=== PATIENT | male | born 1955 | race Caucasian/White ===

== ENCOUNTER 2018-03-09 05:38 | Inpatient (IN) | payer OTHER, SELFPAY ==
[2018-02-27 09:16] VITALS: BMI 22.1
[2018-03-09] VITALS (14 sets, daily range): BP systolic 109–169; BP diastolic 68–110; PULSE 56–101; RESP 10–20; TEMP 36.5–37.2; O2SAT 95–100; BMI 21.4
--- NOTE | 2018-03-09 | DI.RAD.S_ITS ---
PROCEDURE: XR CERVICAL SPINE 2V OR 3V INDICATIONS: C5-6, C6-7. C7-T1 ACDF TECHNIQUE: 3 view(s) of the cervical spine were acquired. COMPARISON: None. FINDINGS: Bones: Immediate postoperative examination showing expected anatomic alignment after anterior fusion plate placement and interbody disc prosthesis material from C5-6 through C7-T1, contiguous lead. Soft tissues: No prevertebral soft tissue swelling. IMPRESSION: Normal alignment established after C5-T1 anterior fusion plating and interbody disc prosthesis placement. Dictated by: Chris Singh M.D. on 03/09/2018 at 11:17 Approved by: Chris Singh M.D. on 03/09/2018 at 11:19
[2018-03-09] MEDS: LACTATED RINGERS 1,000 ML 42 ML IV (06:54)
[2018-03-09] MEDS: CEFAZOLIN 2 GM/100 ML FROZ.PIGGY IV (07:58)
--- NOTE | 2018-03-09 08:32 | SUR.OPER ---
Supine on padded OR bed, head on gel donut, arm padded and tucked at side, legs uncrossed, safety belt at thigh, tape over blanket over lower legs .
--- NOTE | 2018-03-09 09:27 | CM.DANOTE ---
Discharge Planning/Care Management DCP: assessment: case received, EMR reviewed. Pt is still in surgery for a planned spinal surgical procedure. Payer: [facility]. Surgeon: Dr. Palm PCP: Saad Gibbons. DCP team will be following post surgery and as therapy proceeds to assist with any d/c needs that may arise. Pt is , works at [employer]. CM Discharge Assessment Start: 03/09/18 09:18 Freq: Status: Active Protocol: Document 03/09/18 09:19 ITV (Rec: 03/09/18 09:27 ITV [id number]) Discharge Planning Assessment Whiteboard Updated in Patient Room with Yes name and ext. # of Promotions Firm Accounts Manager Review Status In Process Next Review Type Continued Stay Review Pre-Anesthesia Assessment Start: 02/27/18 09:16 Freq: Status: Active Protocol: Document 02/27/18 09:16 VLJ (Rec: 02/27/18 09:44 VLJ [id number]) Pre-Anesthesia Assessment Patient Information Reviewed Via Chart Review Lab Results BMP/CMP Primary Care Provider Saad Gibbons Medical Clearance Received Yes Seen Specialist in Last 12 Months Yes Specialist Seen Orthopedist Height 177.8 cm Weight 69.989 kg Body Mass Index (BMI) 22.1 Anesthesia Review Requested No Automatic Steel Tie Adjuster No Smoking Status Current every day smoker Musculoskeletal Symptoms Neck Pain Numbness Tremors Ambulatory Aid None/bed rest/nurse assist Comment Difficulty performing ADLs Marital Status Advance Directives? No: REGISTRATION REQUEST
--- NOTE | 2018-03-09 10:50 | PM.OP.1 ---
Operative Date/Time/Diagnoses Date of procedure: 03/09/18 Time of procedure: 08:17 Pre-op diagnosis: 1. C5-6, C6-7, C7-T1 spinal stenosis 2. C5-6, C6-7, C7-T1 spondylosis with radiculopathy Post-op diagnosis: same Procedure & Clinicians Procedure: 1. C5-6, C6-7, C7-T1 anterior cervical discectomy and fusion 2. C5-6, C6-7, C7-T1 interbody cage placement 3. C5-6, C6-7, C7-T1 anterior instrumentation with plate and screw placement in C5, C6, C7, T1 4. Utilization of microsurgical technique and operating microscope Same procedure as scheduled: Yes Indications: Patient has been having chronic neck pain and worsening cervical radiculopathy. Patient failed multiple conservative management with worsening pain weakness and numbness in her upper extremity. Patient has been having difficulty performing activity of daily living. After discussing risks benefits of treatment options, patient elected proceed with surgery. Surgeon: Ryan Palm [place] Carrier: Clarisse Jiménez Click Yes if Unassisted: No Anesthesia Type: General Operative Notes Closure Type: primary Specimen(s): none sent Implants & Drains: Globus extend plate, PEEK cage Applied: catheter Estimated Blood Loss (mL): 50 Blood products transfused: none Procedure in detail: Patient was seen in the preoperative area. Risks and benefits of the surgery was discussed with the patient. Operative consent was obtained and placed in the chart. Patient was then taken to the operative room. Prophylactic antibiotic was given less than 0.5 hr prior to skin incision. General anesthesia was administered. Patient was placed into a supine position on her radiolucent table. Bilateral shoulders were taped down to allow proper C-arm imaging. Anterior cervical area was prepped and draped in a sterile fashion. Time-out was performed at this time. Using lateral C-arm imaging, the level between C5 and T1 was identified and marked on patient's neck. A oblique incision from midline towards medial border of sternocleidomastoid muscle was made. The platysma muscle was incised in line with skin incision. Metzenbaum scissor was used to develop the plane between the medial border of sternocleidomastoid d and the strap muscles medially. The carotid sheath and its contents were identified and protected behind the hand-held retractor during the entire case. The plane between the carotid sheath and strap muscles was developed with Metzenbaum scissors. Dissection was made down to the level of the anterior cervical fascia. Longus colli muscle was incised on the anterior aspect of vertebral bodies bilaterally from C5-6, C6-7, C7-T1. Spinal needle was placed into the CC7-T1 disc space and confirmed with lateral C-arm imaging. Using microsurgical technique and operative microscope, anterior cervical diskectomy was performed at C5-6, C6-7, C7-T1 level. This was done by removing the disc material, removing the anterior and posterior osteophytes posterior longitudinal ligaments along with performing bilateral foraminotomies at all 3 levels. Patient was found to have severe central and foraminal stenosis at all 3 levels. Patient's stenosis was fully decompressed after decompression was completed. After the diskectomy was completed, 3 anterior interbody cages were obtained. The cages were packed with globus via cell bone grafting material. One cage each along with the bone grafting material was then packed into the interbody spaces from C5-6, C6-7, C7-T1 with one cage into each interbody level. Large anterior osteophytes were removed using Leksell rongeur and a power drill. After the cages were placed, the anterior cervical plate was stabilized to the C5-6, C6-7, C7-T1 vertebrae using 2 screws at each each level. Total 8 screws were placed. After confirming placement of the hardware with AP and lateral C-arm imaging, the screws were locked into the plate using the locking mechanism and torque limiting screwdriver. After the hardware was placed and confirmed with AP and lateral C-arm imaging, the wound was irrigated with sterile normal saline. The platysma muscle and the subcutaneous tissue was closed with 2-0 Vicryl. The skin was closed with 4-0Monocryl and Steri-Strips. Patient tolerated the procedure well. Patient was transferred recovery room in stable condition. There were no complications. Complications: none Condition: stable Disposition: PACU Plan for aftercare: Admit to inpatient hospital
--- NOTE | 2018-03-09 10:53 | P.OP_ITS ---
Operative Date/Time/Diagnoses Date of procedure: 03/09/18 Time of procedure: 08:17 Pre-op diagnosis: 1. C5-6, C6-7, C7-T1 spinal stenosis 2. C5-6, C6-7, C7-T1 spondylosis with radiculopathy Post-op diagnosis: same Procedure & Clinicians Procedure: 1. C5-6, C6-7, C7-T1 anterior cervical discectomy and fusion 2. C5-6, C6-7, C7-T1 interbody cage placement 3. C5-6, C6-7, C7-T1 anterior instrumentation with plate and screw placement in C5, C6, C7, T1 4. Utilization of microsurgical technique and operating microscope Same procedure as scheduled: Yes Indications: Patient has been having chronic neck pain and worsening cervical radiculopathy. Patient failed multiple conservative management with worsening pain weakness and numbness in her upper extremity. Patient has been having difficulty performing activity of daily living. After discussing risks benefits of treatment options, patient elected proceed with surgery. Surgeon: Ryan Palm Hook And Eye Attacher: Clarisse Jiménez Click Yes if Unassisted: No Anesthesia Type: General Operative Notes Closure Type: primary Specimen(s): none sent Implants & Drains: Globus extend plate, PEEK cage Applied: catheter Estimated Blood Loss (mL): 50 Blood products transfused: none Procedure in detail: Patient was seen in the preoperative area. Risks and benefits of the surgery was discussed with the patient. Operative consent was obtained and placed in the chart. Patient was then taken to the operative room. Prophylactic antibiotic was given less than 0.5 hr prior to skin incision. General anesthesia was administered. Patient was placed into a supine position on her radiolucent table. Bilateral shoulders were taped down to allow proper C-arm imaging. Anterior cervical area was prepped and draped in a sterile fashion. Time-out was performed at this time. Using lateral C-arm imaging, the level between C5 and T1 was identified and marked on patient's neck. A oblique incision from midline towards medial border of sternocleidomastoid muscle was made. The platysma muscle was incised in line with skin incision. Metzenbaum scissor was used to develop the plane between the medial border of sternocleidomastoid d and the strap muscles medially. The carotid sheath and its contents were identified and protected behind the hand- held retractor during the entire case. The plane between the carotid sheath and strap muscles was developed with Metzenbaum scissors. Dissection was made down to the level of the anterior cervical fascia. Longus colli muscle was incised on the anterior aspect of vertebral bodies bilaterally from C5-6, C6-7, C7-T1. Spinal needle was placed into the CC7-T1 disc space and confirmed with lateral C -arm imaging. Using microsurgical technique and operative microscope, anterior cervical diskectomy was performed at C5-6, C6-7, C7-T1 level. This was done by removing the disc material, removing the anterior and posterior osteophytes posterior longitudinal ligaments along with performing bilateral foraminotomies at all 3 levels. Patient was found to have severe central and foraminal stenosis at all 3 levels. Patient's stenosis was fully decompressed after decompression was completed. After the diskectomy was completed, 3 anterior interbody cages were obtained. The cages were packed with globus via cell bone grafting material. One cage each along with the bone grafting material was then packed into the interbody spaces from C5-6, C6-7, C7-T1 with one cage into each interbody level. Large anterior osteophytes were removed using Leksell rongeur and a power drill. After the cages were placed, the anterior cervical plate was stabilized to the C5-6, C6-7, C7-T1 vertebrae using 2 screws at each each level. Total 8 screws were placed. After confirming placement of the hardware with AP and lateral C- arm imaging, the screws were locked into the plate using the locking mechanism and torque limiting screwdriver. After the hardware was placed and confirmed with AP and lateral C-arm imaging, the wound was irrigated with sterile normal saline. The platysma muscle and the subcutaneous tissue was closed with 2-0 Vicryl. The skin was closed with 4- 0Monocryl and Steri-Strips. Patient tolerated the procedure well. Patient was transferred recovery room in stable condition. There were no complications. Complications: none Condition: stable Disposition: PACU Plan for aftercare: Admit to inpatient hospital
[2018-03-09] MEDS: HYDROMORPHONE 2 MG INJ 1 MG IV (11:10)
[2018-03-09] MEDS: HYDROMORPHONE 2 MG INJ 0.5 MG IV ×2 (11:20→11:30)
[2018-03-09] MEDS: SODIUM CHLORIDE 0.9% 1,000 ML 100 ML IV ×2 (12:49→22:00)
[2018-03-09] MEDS: OXYCODONE IR 5 MG TABLET 10 MG PO ×3 (14:22→21:58)
--- NOTE | 2018-03-09 15:26 | PT.IIE ---
Current Diagnoses Other spondylosis with radiculopathy, cervical region (03/09/18) Spinal stenosis, cervical region (03/09/18) Surgery Performed Operation Date: 03/09/18 07:45 Actual Procedures p C5-6, C6-7, C7-T1 ACDF w/Anterior Instru. - Ryan Palm MD Surgical History (Last Updated 02/27/18 @ 09:38 by Arin Anglin, RN) H/O left inguinal hernia repair (Acute) History of appendectomy (Acute) Medical History (Last Updated 02/27/18 @ 09:39 by Arin Anglin, RN) Acute medial meniscus tear of left knee (Acute) Bilateral neck pain (Acute) Bilateral shoulder pain (Acute) Numbness of right hand (Acute) Osteoarthritis of spine with radiculopathy, cervical region (Acute) Other spondylosis with radiculopathy, cervical region (Acute) Paresthesia (Acute) Sialolithiasis (Acute) Spinal stenosis, cervical region (Acute) Physical Therapy Inpatient Evaluation/Re-Eval M1 PT/OT-IP Prior Functional Status Start: 03/09/18 15:17 Freq: NEEDED Status: Active Protocol: Document 03/09/18 15:18 [facility] (Rec: 03/09/18 15:25 [facility] [id number]) Medical Review Prior Functional Status Medical History Reviewed Yes Diet/Fluid Consistency Regular Communication WNL Mobility and Gait Indep without AD; works at [employer] Activities of Daily Living and IADL's indep Social History Household Members spouse Living Arrangements House Number of Floors (Floors) One Floor Number of Stairs To Enter/Railing? 12 LINDA with rail on 1 side ( partially L then partially R) Home Environment Walk in Shower Home Equipment Hand Held Shower Employment Status Pediatric Social Worker Temporary Additional Social History Comment Pt plans to take off as much time as needed. M2 PT-IP Current Condition Start: 03/09/18 15:17 Freq: NEEDED Status: Active Protocol: Document 03/09/18 15:18 [facility] (Rec: 03/09/18 15:25 [facility] [id number]) Physical Therapy Current Condition Current Condition Evaluation Date 03/09/18 Treatment Diagnosis ACDF Onset Date 03/09/18 Precautions Cervical Spine Precautions Soft Collar for Comfort No Heavy Lifting Log Roll M3 PT-IP Subjective Start: 03/09/18 15:17 Freq: NEEDED Status: Active Protocol: Document 03/09/18 15:18 [facility] (Rec: 03/09/18 15:25 [facility] [id number]) Subjective Physical Therapy Visit Type Type Initial Evaluation Visit Start Time 14:40 Visit Stop Time 15:05 Total Visit Minutes 25 Number of PATENT AGENT Visits 0 Physical Therapy Visit Comments Patient Comments Pt excited to get up Patient Goals Go home tomorrow AM M4 PT-IP Mobility and Gait Start: 03/09/18 15:17 Freq: NEEDED Status: Active Protocol: Document 03/09/18 15:18 [facility] (Rec: 03/09/18 15:25 [facility] [id number]) PT-Bed Mobility Assessment Rolling Type of Rolling Log Rolling Level of Assist Standby Assistance Supine to Sit Supine to Sit Standby Assistance Scooting Scooting to Edge of Bed Standby Assistance PT-Transfer Assessment Sit to and From Stand Sit to and from Stand Standby Assistance Equipment Transfer Assistive Device Gait Belt Orthotic/Prosthetic Devices or Brace: Yes Comments Mobility Comments Pt stood then amb, sat in w/c then ambulated back to room. All sit<>stands SBA Gait Assessment Gait Gait Assistance Required: Standby Assistance Distance (Feet) 150 Assistive Devices Assistive Device Gait Belt Orthotic/Prosthetic Devices or Brace: Yes Factors Limiting Gait Function Factors Limiting Gait Function Decreased Strength Comments Gait Comments Pt reports feeling a little off with legs a little wobbly but no dizziness. Took a rest 1/2 way in w/c then amb back to room. PT-Balance Assessment Sitting Balance and Reactions Static Sitting Balance Ability Normal Dynamic Sitting Balance Ability Normal Standing Balance and Reactions Static Standing Balance Ability Good Dynamic Standing Balance Ability Good M5 PT-IP Objective Assessments Start: 03/09/18 15:17 Freq: NEEDED Status: Active Protocol: Document 03/09/18 15:18 [facility] (Rec: 03/09/18 15:25 [facility] [id number]) Orientation Orientation/Cognition Level of Alertness Alert M6 PT-IP Treatment Start: 03/09/18 15:17 Freq: NEEDED Status: Active Protocol: Document 03/09/18 15:18 [facility] (Rec: 03/09/18 15:25 [facility] [id number]) Physical Therapy Treatment Education Education Provided Precautions M7 PT-IP Assessment and Plan Start: 03/09/18 15:17 Freq: NEEDED Status: Active Protocol: Document 03/09/18 15:18 [facility] (Rec: 03/09/18 15:25 [facility] [id number]) PT Summary Assessment and Plan Potential Rehabilitation Potential Excellent Status of Condition at Evaluation Evolving Summary Impairments Pain ROM Strength Balance Gait Assessment Summary Pt is very motivated to cont to progress and is likely to cont to improve with his mobility and be safe for d/c tomorrow based on mobility if he can do stairs safely. Goals Bed Mobility Goal Independent Transfer Goal Independent Gait Goal Standby Assistance Gait Distance 200 Other Goals up/down 12 stairs with 1 rail SBA Days to Meet Goals 2 Frequency of Treatment Frequency Of Treatment Once a Day Treatment Plan Physical Therapy Treatment Plan Bed Mobility Training Transfer Training Gait Training Therapeutic Exercise Balance Retraining Discharge Planning Other Recommendations and Next Treatment stairs & gait, bed mobility Focus without rail Recommendations To Nursing Amount of Assist Needed Standby Assistance Discharge Recommendations PT Discharge Recommendations Home with Assistance
[2018-03-09] MEDS: CEFAZOLIN 1 GM/50 ML FROZ.PIGGY IV (16:30)
[2018-03-09] MEDS: DOCUSATE 100 MG CAPSULE PO (20:59)
[2018-03-09] MEDS: SENNOSIDES 8.6 MG TABLET 17.2 MG PO (20:59)
--- NOTE | 2018-03-09 22:56 | PC.NURSE ---
Patient active tonight, has ambulated in hallways x 2, gait steady with SBA, needing some assistance with shea catheter & IV pole. VS stable. Neck drsg remains CDI, wearing supportive cervical collar. CMS intact, logrolling and post-op cervical neck fusion precautions reviewed. Reports good pain control after taking 2 oxycodone tonight, rating at 1 on pain scale. Ice pack to back of neck. GERRY patent, with 95 ml thin sero-sang output total for last 8 hours. Shea patent with clear yellow urine. Complained that bed was waking me up every 10 minutes, bed changed for new Francisca bed. Complained about noise of IV pump, earplugs given per his request. He is in good spirits tonight, visiting with his daughter in room. Instructed to call for assistance & not get OOB without staff with him, fall precautions reviewed & his bed alarm is active. He denies further needs or concerns tonight.
[2018-03-10 00:20] VITALS: BP 121/78; PULSE 82; RESP 16; TEMP 36.6; O2SAT 99
[2018-03-10] MEDS: CEFAZOLIN 1 GM/50 ML FROZ.PIGGY IV (00:36)
--- NOTE | 2018-03-10 00:46 | PC.NURSE ---
NOC shift Pt is a/o x3, rates pain 5/10, medicated. Pain with cough/swallow. Educated on DB & c, Spo2 99% RA. CMS+, using light for needs. Holt Patent, request removal in am terra.
--- NOTE | 2018-03-10 00:54 | PC.NURSE ---
Addendum entered by Anuja Dexter R.N. 03/10/18 03:56: 0320-Holt removed per Pt request. Pt has been up ambulating halls with minimal assist. Original Note: NOC shift Pt is A/o x3, reports numbness to R hand, present pre surgically. CMS otherwise intact. SBA ambulating in room to BR. Holt patent. Pt requests removal DORIS in am. Medicated for pain . Dressing to neck cdi. Soft collar in place. BA active.
[2018-03-10] MEDS: OXYCODONE IR 5 MG TABLET 10 MG PO ×5 (01:12→21:40)
[2018-03-10] MEDS: hydrOXYzine pamoate 25 MG CAPSULE PO ×3 (03:35→15:07)
[2018-03-10 03:37] VITALS: BP 124/79; PULSE 61; RESP 16; TEMP 36.5; O2SAT 99
[2018-03-10 07:40] VITALS: BP 122/66; PULSE 53; RESP 24; TEMP 36.6; O2SAT 100
[2018-03-10 08:36] LABS: Hematocrit 37.7 % (41-53); Hemoglobin 12.7 g/dL (13.5-17.5); Mean Corpuscular HGB Conc 33.8 % (30-36); Mean Corpuscular Hemoglobin 32.8 PG (26-34); Mean Corpuscular Volume 97.2 fL (80-100); Platelet Count 166 X10^3/uL (150-400); Red Blood Cell Count 3.88 X10^6/uL (4.5-5.9); Red Cell Distribution Width 12.6 % (11.6-14.8)
[2018-03-10] MEDS: DOCUSATE 100 MG CAPSULE PO ×2 (08:36→21:40)
--- NOTE | 2018-03-10 09:13 | PT.IPTN ---
Current Diagnoses Other spondylosis with radiculopathy, cervical region (03/09/18) Spinal stenosis, cervical region (03/09/18) Arthrodesis status (03/09/18) Surgery Performed Operation Date: 03/09/18 07:45 Actual Procedures p C5-6, C6-7, C7-T1 ACDF w/Anterior Instru. - Rayn Palm MD Physical Therapy Treatment Note M2 PT-IP Current Condition Start: 03/09/18 15:17 Freq: NEEDED Status: Active Protocol: Document 03/09/18 15:18 [facility] (Rec: 03/09/18 15:25 [facility] [id number]) Physical Therapy Current Condition Current Condition Evaluation Date 03/09/18 Treatment Diagnosis ACDF Onset Date 03/09/18 Precautions Cervical Spine Precautions Soft Collar for Comfort No Heavy Lifting Log Roll M3 PT-IP Subjective Start: 03/09/18 15:17 Freq: NEEDED Status: Active Protocol: Document 03/10/18 09:13 AB (Rec: 03/10/18 11:41 AB [id number]) Subjective Physical Therapy Visit Type Type Treatment Note Visit Start Time 09:13 Visit Stop Time 09:23 Total Visit Minutes 10 Number of SALES ASSOCIATE FISHING Visits 0 Therapy Pain Assessment Pain When Pain Assessed At Rest Pain Present Pain Present Pain Reported Location Posterior Neck Intensity 2 Scale Used Numeric (1 - 10) M4 PT-IP Mobility and Gait Start: 03/09/18 15:17 Freq: NEEDED Status: Active Protocol: Document 03/10/18 09:13 AB (Rec: 03/10/18 11:41 AB [id number]) Gait Assessment Gait Gait Assistance Required: Standby Assistance Distance (Feet) 200 Able to Maintain Weight Bearing Status Yes During Gait Assistive Devices Assistive Device None Gait Belt Factors Limiting Gait Function Factors Limiting Gait Function Pain Stair Climbing Assessment Evaluation Level of Assist On Stairs Standby Assistance Devices Stair Climbing Assistive Devices Left Railing Right Railing Technique/Endurance Stair Climbing Direction Ascend and Descend Stair Climbing Technique Step to Step Number of Steps Climbed 3 Query Text: Stair Climbing Set # Repetitions (reps) 3 Comments Stair Climbing Comments pt completed up/down steps initially with bilateral rails SBA and then completed using 1 rail ( R and then L) SBA. M5 PT-IP Objective Assessments Start: 03/09/18 15:17 Freq: NEEDED Status: Active Protocol: Document 03/09/18 15:18 [facility] (Rec: 03/09/18 15:25 [facility] [id number]) Orientation Orientation/Cognition Level of Alertness Alert M6 PT-IP Treatment Start: 03/09/18 15:17 Freq: NEEDED Status: Active Protocol: Document 03/09/18 15:18 [facility] (Rec: 03/09/18 15:25 [facility] [id number]) Physical Therapy Treatment Education Education Provided Precautions M7 PT-IP Assessment and Plan Start: 03/09/18 15:17 Freq: NEEDED Status: Active Protocol: Document 03/10/18 09:13 AB (Rec: 03/10/18 11:41 AB [id number]) PT Summary Assessment and Plan Potential Rehabilitation Potential Good Summary Impairments Pain ROM Strength Gait Progress Towards Goals Progressing Toward Goals Assessment Summary pt doing well with mobility and plans to go home with assist. pt may go home when medically stable. Goals Bed Mobility Goal Independent Transfer Goal Independent Gait Goal Standby Assistance Gait Distance 200 Other Goals up/down 12 stairs with 1 rail SBA Days to Meet Goals 2 Frequency of Treatment Frequency Of Treatment Once a Day Treatment Plan Physical Therapy Treatment Plan Bed Mobility Training Transfer Training Gait Training Therapeutic Exercise Balance Retraining Discharge Planning Other Recommendations and Next Treatment stairs & gait, bed mobility Focus without rail Recommendations To Nursing Amount of Assist Needed Standby Assistance Discharge Recommendations PT Discharge Recommendations Home with Assistance
--- NOTE | 2018-03-10 09:44 | PM.PNPO.1 ---
Subjective Date Patient Seen: 03/10/18 Time Patient Seen: 09:44 Interval history: POD #1 status post C5-T1 Artificial cervical discectomy and fusion with Dr. Palm. Patient's pain is well controlled. He has been up and mobilizing with physical therapy. He has a drain in place that put out 120 mL last night. No complaints of swallowing issues. He is able to eat void without difficulty or assistance. Exam Vital Signs (past 8 hours): - 03/10/18 03:37 03/10/18 07:40 Temperature 97.7 F 97.9 F Pulse Rate 61 53 L Respiratory Rate 16 24 Blood Pressure 124/79 122/66 Pulse Oximetry 99 100 Oxygen Delivery Method Room Air Narrative Exam Narrative: Patient lying in bed in no acute distress. He is alert and oriented x3. Dressing on anterior neck is CDI. Wearing a soft collar. Senior Security Engineer strength is strong and equal. Sensation is noticeably better since prior to surgery, with numbness at right pinky and ring finger. Radial pulses are symmetrical. Objective Labs Result Diagrams: 03/10/18 08:12 Labs: Laboratory Results - last 24 hr 03/10/18 08:12 WBC 8.0 RBC 3.88 L Hgb 12.7 L Hct 37.7 L MCV 97.2 MCH 32.8 MCHC 33.8 RDW 12.6 Plt Count 166 Assessment & Plan Post-op (1) S/P cervical spinal fusion: Current Visit: Yes Status: Acute Postoperative Procedures Operation Date: 03/09/18 07:45 Actual Procedures Side Surgeon p C5-6, C6-7, C7-T1 ACDF w/Anterior Instru. Ryan Palm MD POD #1 status post C5-T1 Artificial cervical discectomy and fusion with Dr. Palm. Continue to mobilize with physical therapy. No excessive bending, lifting, or twisting. Keep drain in place until less than 20 mL. Continue current pain control. Patient will likely discharge once drainage has decreased either today or tomorrow. Quality VTE Deep Vein Thrombosis/Pulmonary Embolism Present on Admission: No
--- NOTE | 2018-03-10 11:05 | OT.IP.EVAL ---
Current Diagnoses Other spondylosis with radiculopathy, cervical region (03/09/18) Spinal stenosis, cervical region (03/09/18) Arthrodesis status (03/09/18) Surgery Performed Operation Date: 03/09/18 07:45 Actual Procedures p C5-6, C6-7, C7-T1 ACDF w/Anterior Instru. - Ryan Palm MD Past Medical History (Last Updated 02/27/18 @ 09:39 by Arin Anglin, RN) Acute medial meniscus tear of left knee (Acute) Bilateral neck pain (Acute) Bilateral shoulder pain (Acute) Numbness of right hand (Acute) Osteoarthritis of spine with radiculopathy, cervical region (Acute) Other spondylosis with radiculopathy, cervical region (Acute) Paresthesia (Acute) Sialolithiasis (Acute) Spinal stenosis, cervical region (Acute) Surgical History (Last Updated 02/27/18 @ 09:38 by Arin Anglin, RN) H/O left inguinal hernia repair (Acute) History of appendectomy (Acute) Occupational Therapy Inpatient Evaluation/Re-Eval M1 PT/OT-IP Prior Functional Status Start: 03/09/18 15:17 Freq: NEEDED Status: Active Protocol: Document 03/09/18 15:18 [facility] (Rec: 03/09/18 15:25 [facility] [id number]) Medical Review Prior Functional Status Medical History Reviewed Yes Diet/Fluid Consistency Regular Communication WNL Mobility and Gait Indep without AD; works at [employer] Activities of Daily Living and IADL's indep Social History Household Members spouse Living Arrangements House Number of Floors (Floors) One Floor Number of Stairs To Enter/Railing? 12 LINDA with rail on 1 side ( partially L then partially R) Home Environment Walk in Shower Home Equipment Hand Held Shower Employment Status Industrial Refrigeration Mechanic Temporary Additional Social History Comment Pt plans to take off as much time as needed. M1 PT/OT-IP Prior Functional Status Start: 03/10/18 10:49 Freq: NEEDED Status: Active Protocol: Document 03/10/18 10:49 [facility] (Rec: 03/10/18 11:05 [facility] [id number]) Medical Review Prior Functional Status Medical History Reviewed Yes Diet/Fluid Consistency Regular Communication WNL Mobility and Gait Indep without AD; works at [employer] Activities of Daily Living and IADL's indep Social History Household Members spouse Living Arrangements House Number of Floors (Floors) One Floor Number of Stairs To Enter/Railing? 12 LINDA with rail on 1 side ( partially L then partially R) Home Environment Walk in Shower Home Equipment Hand Held Shower Employment Status Industrial Refrigeration Mechanic Temporary Additional Social History Comment Pt plans to take off as much time as needed. M2 OT-IP Current Condition Start: 03/10/18 10:49 Freq: Status: Active Protocol: Document 03/10/18 10:49 [facility] (Rec: 03/10/18 11:05 [facility] [id number]) Occupational Therapy Current Condition Current Condition Evaluation Date 03/10/18 Treatment Diagnosis Cervical spinal stenosis Diagnosis Onset Date 03/09/18 Post Operative Precautions Posterior Hip Precautions No Hip Adduction Cervical Spine Precautions Soft Collar for Comfort No Heavy Lifting Log Roll M3 OT- IP Subjective and Pain Start: 03/10/18 10:49 Freq: Status: Active Protocol: Document 03/10/18 10:49 [facility] (Rec: 03/10/18 11:05 [facility] [id number]) OT- Subjective Occupational Therapy Visit Type Type Initial Evaluation Visit Start Time 09:05 Visit Stop Time 09:15 Total Visit Minutes 10 Occupational Therapy Visit Comments Patient/Caregiver Goals Pt wanting to go home today. OT Pain Assessment Pain When Pain Assessed During Mobility Pain Present Pain Present Pain Reported Location Posterior Neck Intensity 6 Scale Used Numeric (1 - 10) M4 OT- IP ADL's Start: 03/10/18 10:49 Freq: Status: Active Protocol: Document 03/10/18 10:49 [facility] (Rec: 03/10/18 11:05 [facility] [id number]) OT DPN-Pldf-Zncdbyc General Evaluation Self-Feeding Ability Independent Comments OT Self-Feeding Comments Educated to take smaller bites and alternate between solids and liquids, in addition suggested pt may want to eat softer food initially. OT ADL-Grooming General Evaluation Grooming Ability Independent OT ADL-Oral Care General Eval Oral Care Ability Independent OT ADL-Dressing General Eval Upper Body Dressing Ability Independent Lower Body Dressing Ability Independent Comments OT Dressing Comments Pt able to independently rani/ doff soft collar. OT ADL-Toileting General Evaluation Toileting Ability Independent M6 OT- IP Functional Cognition Start: 03/10/18 10:49 Freq: Status: Active Protocol: Document 03/10/18 10:49 [facility] (Rec: 03/10/18 11:05 [facility] [id number]) Cognitive Factors Limiting Selfcare Function Cognitive Ability Level of Alertness Alert Attention Span Ability Capable of Focused Attention Capable of Sustained Attention Ability to Follow Commands Able to Follow Multi-Step Commands Memory Description No Deficits Noted Safety Awareness No Deficits Noted Problem Solving Ability No deficits Noted Cognitive Comments Cognitive Assessment Comments Independent for all needs, suggested due to on pain meds to have supervise for money and medication needs. OT- Vision and Hearing OT- Hearing Assessment OT- Hearing Assessment Use of Hearing Aids OT- Vision Assessment Vision Assessment Comments Pt states uses hear aids and contacts but did not bring them in. M7 OT- IP Mobility and Balance Start: 03/10/18 10:49 Freq: Status: Active Protocol: Document 03/10/18 10:49 [facility] (Rec: 03/10/18 11:05 [facility] [id number]) OT- Bed Mobility Assessment Rolling Type of Rolling Roll to Right Level of Assistance Independent Supine to Sit Supine to Sit Assist Independent Sit to Supine Sit to Supine Assist Independent OT-Transfer Assessment Sit to and From Stand Sit to and from Stand Independent Transfers Transfer Ability Independent Technique Transfer Destination Bed Toilet Transfer Technique Stand Step Pivot Devices Transfer Assistive Devices None Comments Mobility Comments Pt independent with bed mobility and walking to and from the bathroom and sink with good safety. OT- Balance Assessment Sitting Balance and Reactions Static Sitting Balance Ability Normal Dynamic Sitting Balance Ability Normal Standing Balance and Reactions Static Standing Balance Ability Normal Dynamic Standing Balance Ability Good M8 OT- IP Objective Assessments Start: 03/10/18 10:49 Freq: Status: Active Protocol: Document 03/10/18 10:49 [facility] (Rec: 03/10/18 11:05 [facility] [id number]) OT Gross Range of Motion Upper Extremity Range of Motion Assessment Within Functional Limits OT Strength Comments Strength Comments RUE 4+/5, LUE 5/5 pt states right arm feels half as strong as left side. M9 OT- IP Assessment and Plan Start: 03/10/18 10:49 Freq: Status: Active Protocol: Document 03/10/18 10:49 [facility] (Rec: 03/10/18 11:05 [facility] [id number]) OT Summary Assessment and Plan Potential Rehabilitation Potential Excellent Analytic Complexity at Evaluation Low Summary OT Impairments Pain Strength Progress Towards Goals Progressing Toward Goals Assessment Summary Pt doing well and has no further need for OT services at this time and to go home when cleared by surgeon. Goals Days to Meet Goals 1 Frequency of Treatment Frequency Of Treatment Once a Day Treatment Plan OT Treatment Plan Discharge Planning Discharge Recommendations OT Discharge Recommendations Home with Assistance
[2018-03-10 13:40] VITALS: BP 143/75; PULSE 60; RESP 20; TEMP 36.8; O2SAT 98
--- NOTE | 2018-03-10 14:10 | CM.DPC ---
DCP: continued:Ortho PA note from today is noted. Have watched pt up mobilizing in halls today. Met with him now as planned. Introduced self and role. Pt confirms that the plan is for him to stay in hospital until the drainage is < 20c. Soft collar and drainage bag are in place. Pt will have supportive assist from his and other family members. P: home when all is in place as per above.
[2018-03-10 16:19] VITALS: BP 129/91; PULSE 58; RESP 18; TEMP 36.6; O2SAT 98
[2018-03-10 20:51] VITALS: BP 111/63; PULSE 70; RESP 21; TEMP 36.6; O2SAT 98
[2018-03-10] MEDS: SENNOSIDES 8.6 MG TABLET 17.2 MG PO (21:40)
[2018-03-11 00:10] VITALS: BP 118/72; PULSE 63; RESP 17; TEMP 36.6; O2SAT 98
[2018-03-11 03:35] VITALS: BP 129/93; PULSE 63; RESP 18; TEMP 36.3; O2SAT 97
[2018-03-11] MEDS: hydrOXYzine pamoate 25 MG CAPSULE PO ×4 (03:36→18:31)
[2018-03-11] MEDS: OXYCODONE IR 5 MG TABLET 10 MG PO ×4 (03:36→18:27)
[2018-03-11 07:55] VITALS: BP 138/82; PULSE 60; RESP 17; TEMP 36.7; O2SAT 99
[2018-03-11] MEDS: DOCUSATE 100 MG CAPSULE PO ×2 (08:24→18:27)
--- NOTE | 2018-03-11 09:39 | PM.PNPO.1 ---
Subjective Date Patient Seen: 03/11/18 Time Patient Seen: 07:49 Interval history: Patient's pain is mild. Denies fever chills. No nausea vomiting. Patient tolerating solid food. Otherwise without complaints. Exam Vital Signs (past 8 hours): - 03/11/18 03:35 03/11/18 07:55 Temperature 97.4 F L 98.1 F Pulse Rate 63 60 Respiratory Rate 18 17 Blood Pressure 129/93 H 138/82 Pulse Oximetry 97 99 Drain output 110 cc over the last 8 hr Oxygen Delivery Method Room Air Oxygen Flow Rate 0 Narrative Exam Narrative: 62-year-old male resting comfortably in bed in no apparent distress. Soft collar is in place. Dressing is clean, dry and intact. Sensation grossly intact to light touch bilateral upper extremities. Motor function is intact bilateral upper extremities. Objective Labs Result Diagrams: 03/10/18 08:12 Assessment & Plan Post-op Postoperative Procedures Operation Date: 03/09/18 07:45 Actual Procedures Side Surgeon p C5-6, C6-7, C7-T1 ACDF w/Anterior Instru. Ryan Palm MD postop day 2, patient progressing as expected. Mobilize with physical therapy. Limit bending, twisting, lifting. Continue drain until less than 20 cc. Quality VTE Deep Vein Thrombosis/Pulmonary Embolism Present on Admission: No
--- NOTE | 2018-03-11 10:15 | PC.NURSE ---
0930 GERRY drain to drainage only, no suction per tamika Orozco.
--- NOTE | 2018-03-11 11:11 | PT.IPTN ---
Current Diagnoses Other spondylosis with radiculopathy, cervical region (03/09/18) Spinal stenosis, cervical region (03/09/18) Arthrodesis status (03/09/18) Surgery Performed Operation Date: 03/09/18 07:45 Actual Procedures p C5-6, C6-7, C7-T1 ACDF w/Anterior Instru. - Ryan Palm MD Physical Therapy Treatment Note M2 PT-IP Current Condition Start: 03/09/18 15:17 Freq: NEEDED Status: Active Protocol: Document 03/09/18 15:18 [facility] (Rec: 03/09/18 15:25 [facility] [email or web address]) Physical Therapy Current Condition Current Condition Evaluation Date 03/09/18 Treatment Diagnosis ACDF Onset Date 03/09/18 Precautions Cervical Spine Precautions Soft Collar for Comfort No Heavy Lifting Log Roll M3 PT-IP Subjective Start: 03/09/18 15:17 Freq: NEEDED Status: Active Protocol: Document 03/11/18 10:50 [facility] (Rec: 03/11/18 11:10 [facility] [email or web address]) Subjective Physical Therapy Visit Type Type Treatment Note Visit Start Time 10:35 Visit Stop Time 10:50 Total Visit Minutes 15 Number of QUALITY ASSURANCE ENGINEER Visits 1 Physical Therapy Visit Comments Patient Comments Pt states he would like a shower. Therapy Pain Assessment Pain When Pain Assessed At Rest Pain Present Pain Present Pain Reported Location Posterior Neck Intensity 2 Scale Used Numeric (1 - 10) M4 PT-IP Mobility and Gait Start: 03/09/18 15:17 Freq: NEEDED Status: Active Protocol: Document 03/11/18 10:50 [facility] (Rec: 03/11/18 11:10 [facility] [email or web address]) Gait Assessment Gait Gait Assistance Required: Standby Assistance Distance (Feet) 500 Able to Maintain Weight Bearing Status Yes During Gait Assistive Devices Assistive Device None Gait Belt Factors Limiting Gait Function Factors Limiting Gait Function Pain Stair Climbing Assessment Evaluation Level of Assist On Stairs Standby Assistance Devices Stair Climbing Assistive Devices Left Railing Right Railing Technique/Endurance Stair Climbing Direction Ascend and Descend Stair Climbing Technique Step to Step Number of Steps Climbed 3 Query Text: Stair Climbing Set # Repetitions (reps) 2 Comments Stair Climbing Comments one rep with right and than on rep with left rail. M5 PT-IP Objective Assessments Start: 03/09/18 15:17 Freq: NEEDED Status: Active Protocol: Document 03/09/18 15:18 [facility] (Rec: 03/09/18 15:25 [facility] [id number]) Orientation Orientation/Cognition Level of Alertness Alert M6 PT-IP Treatment Start: 03/09/18 15:17 Freq: NEEDED Status: Active Protocol: Document 03/09/18 15:18 [facility] (Rec: 03/09/18 15:25 [facility] [id number]) Physical Therapy Treatment Education Education Provided Precautions M7 PT-IP Assessment and Plan Start: 03/09/18 15:17 Freq: NEEDED Status: Active Protocol: Document 03/11/18 10:50 [facility] (Rec: 03/11/18 11:10 [facility] [email or web address]) PT Summary Assessment and Plan Frequency of Treatment Frequency Of Treatment Once a Day Treatment Plan Other Recommendations and Next Treatment stairs & gait, bed mobility Focus without rail Recommendations To Nursing Amount of Assist Needed Standby Assistance Discharge Recommendations PT Discharge Recommendations Home with Assistance
[2018-03-11 12:14] VITALS: BP 92/58; PULSE 61; RESP 16; TEMP 36.6; O2SAT 93
[2018-03-11 15:25] VITALS: BP 101/70; PULSE 58; RESP 20; TEMP 36.7; O2SAT 99
[2018-03-11] MEDS: SENNOSIDES 8.6 MG TABLET 17.2 MG PO (18:28)
[2018-03-11 19:54] VITALS: BP 89/55; PULSE 68; RESP 18; TEMP 36.9; O2SAT 96
--- NOTE | 2018-03-12 | DI.RAD.S_ITS ---
PROCEDURE: XR CHEST 1V INDICATIONS: decrease in BP, diaphoretic TECHNIQUE: One view of the chest was acquired. COMPARISON: [facility], CR, XR CERVICAL SPINE 2V OR 3V, 03/09/2018, 8:29. FINDINGS: Surgical changes and devices: The lowest margin of a recently placed anterior cervical fusion plate can be seen, and along the left lateral border of this area and extending approximately 2 cm below there is what appears to be a surgical drain. This extends to the medial clavicular head axial level.. Lungs and pleura: No pleural effusions or pneumothorax. Lungs are clear on the left but there is what appears to be mild or early pneumonia at the right lung base just behind the dome of the diaphragm. Mediastinum: Mediastinal contours appear normal. Heart size is normal. Bones and chest wall: No suspicious bony lesions. Overlying soft tissues appear unremarkable. IMPRESSION: Postsurgical changes appear recent at the anterior low cervical spine area where a fusion plate has been recently placed. What appears to be a vertically oriented drainage catheter on the left lies adjacent to the visualized inferior border of the fusion plate. Suspect mild or early pneumonia just behind the diaphragm at the right lung base. Dictated by: Chris Singh M.D. on 03/12/2018 at 10:48 Approved by: Chris Singh M.D. on 03/12/2018 at 10:51
[2018-03-12 00:30] VITALS: BP 117/68; PULSE 65; RESP 18; TEMP 36.6; O2SAT 97
[2018-03-12] MEDS: OXYCODONE IR 5 MG TABLET 10 MG PO ×4 (01:01→15:53)
[2018-03-12] MEDS: hydrOXYzine pamoate 25 MG CAPSULE PO ×3 (01:02→12:48)
[2018-03-12 06:55] VITALS: BP 108/76; PULSE 60; RESP 16; TEMP 36.5; O2SAT 98
[2018-03-12 07:50] VITALS: BP 112/58; PULSE 60; RESP 16; TEMP 36.7; O2SAT 98
[2018-03-12] MEDS: DOCUSATE 100 MG CAPSULE PO (09:29)
--- NOTE | 2018-03-12 10:29 | PT.IPTN ---
Current Diagnoses Other spondylosis with radiculopathy, cervical region (03/09/18) Spinal stenosis, cervical region (03/09/18) Arthrodesis status (03/09/18) Surgery Performed Operation Date: 03/09/18 07:45 Actual Procedures p C5-6, C6-7, C7-T1 ACDF w/Anterior Instru. - Ryan Palm MD Physical Therapy Treatment Note M2 PT-IP Current Condition Start: 03/09/18 15:17 Freq: NEEDED Status: Active Protocol: Document 03/09/18 15:18 [facility] (Rec: 03/09/18 15:25 [facility] [email or web address]) Physical Therapy Current Condition Current Condition Evaluation Date 03/09/18 Treatment Diagnosis ACDF Onset Date 03/09/18 Precautions Cervical Spine Precautions Soft Collar for Comfort No Heavy Lifting Log Roll M3 PT-IP Subjective Start: 03/09/18 15:17 Freq: NEEDED Status: Active Protocol: Document 03/12/18 10:28 [facility] (Rec: 03/12/18 10:29 [facility]GD [id number]) Subjective Physical Therapy Visit Type Notes Hold per RN, due to pt having low HR and blood pressure. Other Recommendations and Next Treatment stairs & gait, bed mobility Focus without rail Recommendations To Nursing Amount of Assist Needed Standby Assistance Discharge Recommendations PT Discharge Recommendations Home with Assistance
[2018-03-12 11:13] LABS: Add Manual Diff / Slide Review NO; Basophils Percent Auto 0.6 % (0-2); Eosinophils Percent Auto 0.8 % (2-4); Hematocrit 40.3 % (41-53); Hemoglobin 13.6 g/dL (13.5-17.5); Mean Corpuscular HGB Conc 33.8 % (30-36); Mean Corpuscular Hemoglobin 32.7 PG (26-34); Mean Corpuscular Volume 96.8 fL (80-100); Monocytes Percent Auto 9.1 % (3-14); Neutrophils Absolute Auto 4100 /uL (3000-5900); Neutrophils Percent Auto 61.5 % (50-75); Platelet Count 175 X10^3/uL (150-400); Red Blood Cell Count 4.16 X10^6/uL (4.5-5.9); Red Cell Distribution Width 12.3 % (11.6-14.8); White Blood Cell Count 6.7 X10^3/uL (4.5-11.0)
--- NOTE | 2018-03-12 11:18 | PM.PNPO.1 ---
Subjective Date Patient Seen: 03/12/18 Time Patient Seen: 11:18 Interval history: POD #3 status post C5 through T1 Artificial cervical discectomy and fusion with Dr. Palm. Patient's pain has been well controlled. Patient did have a vasovagal episode this morning with heart rate in 30s, and blood pressure 63/30. Patient has no significant cardiac history. Denies chest pain or shortness of breath. Patient denies any swallowing issues. Exam Vital Signs (past 8 hours): - 03/12/18 06:55 03/12/18 07:50 Temperature 97.7 F 98.0 F Pulse Rate 60 60 Respiratory Rate 16 16 Blood Pressure 108/76 112/58 L Pulse Oximetry 98 98 Oxygen Delivery Method Room Air Oxygen Flow Rate 0 Narrative Exam Narrative: The patient lying in bed in no acute distress. He is alert and oriented x3. Dressing on neck is CDI. Drain in place with 75 cc overnight. [facility] strength strong equal. Pulses are symmetrical. Objective Labs Result Diagrams: 03/12/18 11:02 03/12/18 11:02 Labs: Laboratory Results - last 24 hr 03/12/18 11:02 WBC 6.7 RBC 4.16 L Hgb 13.6 Hct 40.3 L MCV 96.8 MCH 32.7 MCHC 33.8 RDW 12.3 Plt Count 175 Neut % (Auto) 61.5 Lymph % (Auto) 28.0 Powell % (Auto) 9.1 Eos % (Auto) 0.8 L Baso % (Auto) 0.6 Neut # (Auto) 4100 Assessment & Plan Post-op (1) S/P cervical spinal fusion: Current Visit: Yes Status: Acute Postoperative Procedures Operation Date: 03/09/18 07:45 Actual Procedures Side Surgeon p C5-6, C6-7, C7-T1 ACDF w/Anterior Instru. Ryan Palm MD Patient likely had a vasovagal episode while eating breakfast. Ordered EKG which was normal. Waiting on results of chest x-ray, CBC, and CMP. Continue to mobilize with physical therapy. He really needs to take his time ambulating in the ware, and going from sitting to standing position. Increases oral fluids. Will potentially discharge once results are back either today or tomorrow, and we will re-evaluate today. Quality VTE Deep Vein Thrombosis/Pulmonary Embolism Present on Admission: No
[2018-03-12 11:23] LABS: Alanine Aminotransferase 19 IU/L (21-72); Albumin 3.9 g/dL (3.5-5.0); Albumin Globulin Ratio 1.6 (1.0-2.8); Alkaline Phosphatase 41 U/L (38-126); Aspartate Aminotransferase 16 IU/L (17-59); BUN Creatinine Ratio 16.7 (6-22); Bilirubin Total 0.4 mg/dL (0.2-1.3); Blood Urea Nitrogen 15 mg/dL (9-20); Calcium 9.3 mg/dL (8.4-10.2); Carbon Dioxide 32 mmol/L (22-32); Chloride 101 mmol/L (98-107); Estimated Glomerular Filt Rate > 60.0 mL/min (>60); Globulin 2.5 g/dL (1.7-4.1); Glucose 94 mg/dL (80-110); HEMOLYSIS < 15 (0-50); Potassium 3.9 mmol/L (3.4-5.1); Sodium 140 mmol/L (137-145); Total Protein 6.4 g/dL (6.3-8.2)
--- NOTE | 2018-03-12 15:05 | PT.IPTN ---
Current Diagnoses Other spondylosis with radiculopathy, cervical region (03/09/18) Spinal stenosis, cervical region (03/09/18) Arthrodesis status (03/09/18) Surgery Performed Operation Date: 03/09/18 07:45 Actual Procedures p C5-6, C6-7, C7-T1 ACDF w/Anterior Instru. - Ryan Palm MD Physical Therapy Treatment Note M2 PT-IP Current Condition Start: 03/09/18 15:17 Freq: NEEDED Status: Active Protocol: Document 03/09/18 15:18 [facility] (Rec: 03/09/18 15:25 [facility] [email or web address]) Physical Therapy Current Condition Current Condition Evaluation Date 03/09/18 Treatment Diagnosis ACDF Onset Date 03/09/18 Precautions Cervical Spine Precautions Soft Collar for Comfort No Heavy Lifting Log Roll M3 PT-IP Subjective Start: 03/09/18 15:17 Freq: NEEDED Status: Active Protocol: Document 03/12/18 15:05 [facility] (Rec: 03/12/18 16:06 GGD [id number]) Subjective Physical Therapy Visit Type Type Treatment Note Visit Start Time 14:44 Visit Stop Time 15:05 Total Visit Minutes 20 Physical Therapy Visit Comments Patient Comments Pt states that he is feeling better. Therapy Pain Assessment Pain When Pain Assessed At Rest Pain Present Pain Present Pain Reported Location Posterior Neck Intensity 3 Scale Used Numeric (1 - 10) M4 PT-IP Mobility and Gait Start: 03/09/18 15:17 Freq: NEEDED Status: Active Protocol: Document 03/12/18 15:05 [facility] (Rec: 03/12/18 16:06 GGD [id number]) PT-Bed Mobility Assessment Rolling Type of Rolling Log Rolling Level of Assist Standby Assistance Supine to Sit Supine to Sit Standby Assistance Sit to Supine Sit to Supine Standby Assistance Scooting Scooting to Edge of Bed Standby Assistance PT-Transfer Assessment Sit to and From Stand Sit to and from Stand Standby Assistance Equipment Transfer Assistive Device Gait Belt Orthotic/Prosthetic Devices or Brace: Yes Comments Mobility Comments BP supine 128/77, sititng 115/ 74, standing 106/80, after ambulation 117/86. Gait Assessment Gait Gait Assistance Required: Standby Assistance Distance (Feet) 220 Able to Maintain Weight Bearing Status Yes During Gait Assistive Devices Assistive Device None Gait Belt Comments Gait Comments Pt no C/O dizziness with gait. M5 PT-IP Objective Assessments Start: 03/09/18 15:17 Freq: NEEDED Status: Active Protocol: Document 03/09/18 15:18 [facility] (Rec: 03/09/18 15:25 [facility] [email or web address]) Orientation Orientation/Cognition Level of Alertness Alert M6 PT-IP Treatment Start: 03/09/18 15:17 Freq: NEEDED Status: Active Protocol: Document 03/09/18 15:18 [facility] (Rec: 03/09/18 15:25 [facility] [email or web address]) Physical Therapy Treatment Education Education Provided Precautions M7 PT-IP Assessment and Plan Start: 03/09/18 15:17 Freq: NEEDED Status: Active Protocol: Document 03/12/18 15:05 [facility] (Rec: 03/12/18 16:06 GGD [id number]) PT Summary Assessment and Plan Summary Assessment Summary Pt continue to do well. He had no dizziness with mobility. He was safe and stable with gait. He safe for D/C home when medically stable. Frequency of Treatment Frequency Of Treatment Once a Day Recommendations To Nursing Amount of Assist Needed Standby Assistance Discharge Recommendations PT Discharge Recommendations Home with Assistance
--- NOTE | 2018-03-12 15:27 | PC.NURSE ---
Ortho: SI'm doing better now. Pt had an apparent vaso vagal response this am. BP 63/31, p 42. Was in bed and not doing anything. Heart rate has been slow and pt reported this morning before incident that this was his normal. Rate this am was 54-56. No c/p. Ecg, labs, x-ray completed and reviewed by LOKESH/. Pt has had no further episode since and has been up w/PT this afternoon. Second concern is his ability to swallow and his throat feeling tight. Pt has not seen ST yet and this was ordered and they are to come and see pt. Ascencion had been opened to gravity yesterday but by the evening time he was reporting to staff his throat felt like it was closing off so suction was again placed. This information was conveyed to LOKESH Bailey who will make Dr. Palm aware. Ascencion has drained 45mls this shift. Pt also reports his throat feels tight when he is laying down in the bed. Likes to keep his hob elevated and/or sits in the chair or at the side of the bed. Po pain meds have been effective for pain but he was unaware he had to ask for them. He is aware now. Hopefully will feel better tomorrow. Cont w/poc.
[2018-03-12 15:50] VITALS: BP 114/71; PULSE 66; RESP 18; TEMP 36.7; O2SAT 98
--- NOTE | 2018-03-12 16:10 | SLP.IPNOTE ---
METALLIC YARN SLITTING MACHINE OPERATOR present for swallow screen after nursing request. Patient had ACDF surgery on 03/09/18. Since then family and staff have observed patient to cough intermittently with intake. However, he is a fast eater. Chest X-ray taken today revealed suspicion for mild or early pneumonia just behind the diaphragm at the right lung base. Please see dedicated report from Dr Singh for further details. From clinical judgment, METALLIC YARN SLITTING MACHINE OPERATOR strongly recommends modified barium swallow study to evaluate the nature and safety of the patient's swallow function while he is admitted during this stay. If an inpatient MBS cannot be completed, strongly recommend outpatient MBS as soon as possible.
--- NOTE | 2018-03-12 16:17 | PC.NURSE ---
nurse note 1615 VSS. Pt alert and oriented. up independantly in room. in room swallow eval performed and pt stated he'd been having discomfort and chest x-ray today showed possible pneumonia. pt able to swallow pills, applesauce, and water without difficulty. states has been probably eating too fast but denies any difficulties. 's PA at bedside for swallow eval as well. into room to meet with pt and family r/t DC and pulled drain. reviewed pt's drain outputs and pulled drain and applied bandage. Family's questions answered by , including addressing pt's vagal episode today. awaiting DC orders to review with pt.
--- NOTE | 2018-03-12 16:22 | PM.DS.1 ---
History of Present Illness Date Patient Seen: 03/12/18 Time Patient Seen: 16:23 Chief complaint: [id number] Narrative: Patient's pain currently well-controlled. Taking oxycodone 10 mg q.3-4 hours as needed for pain. Patient did have a vasovagal episode this morning with heart rate in 30s, and blood pressure 63/30. Patient has no significant cardiac history. Patient has been up since the vasovagal event earlier this morning. Denies feeling short of breath or having chest pain. No difficulty swallowing. He denies being dizzy or lightheaded. Discharge Providers Date of admission: 03/09/18 05:38 Primary care physician: Saad Gibbons MD Consults: 03/09/18 11:54 Consult to Occupational Therapy Evaluate & Treat Comment: Physician Instructions: Evaluate and treat Consult to Physical Therapy Evaluate & Treat Comment: Physician Instructions: Evaluate and Treat Discharge provider: Juan Francisco Bailey PA-C Discharge Date: 03/12/18 Summary Discharge Diagnosis: Status post 1. C5-6, C6-7, C7-T1 anterior cervical discectomy and fusion 2. C5-6, C6-7, C7-T1 interbody cage placement 3. C5-6, C6-7, C7-T1 anterior instrumentation with plate and screw placement in C5, C6, C7, T1 4. Utilization of microsurgical technique and operating microscope Hospital Course: Patient has been having chronic neck pain and worsening cervical radiculopathy. Patient failed multiple conservative management with worsening pain weakness and numbness in her upper extremity. Patient has been having difficulty performing activity of daily living. After discussing risks benefits of treatment options, patient elected proceed with surgery. Surgeon: Ryan Palm Supervisor [employer]: Clarisse Jiménez Click Yes if Unassisted: No Anesthesia Type: General Estimated blood loss 50 mL Basal vagal event earlier this morning. EKG normal. H&H stable. Patient discharged home in stable condition. Status at Discharge Functional status at discharge: uses cane/walker Overall status at discharge: patient is progressing back to baseline Time Spent with Patient Less than 30 minutes Exam Vital Signs (past 8 hours): - 03/12/18 15:50 Temperature 98.0 F Pulse Rate 66 Respiratory Rate 18 Blood Pressure 114/71 Pulse Oximetry 98 Oxygen Delivery Method Room Air Oxygen Flow Rate 0 Narrative Exam Narrative: 62-year-old male sitting at the edge of bed in no acute distress. Soft collar in place. Dressing clean, dry and intact. Drain discontinued. Objective Labs Result Diagrams: 03/12/18 11:02 03/12/18 11:02 Labs: Laboratory Results - last 24 hr 03/12/18 03/12/18 11:02 11:02 WBC 6.7 RBC 4.16 L Hgb 13.6 Hct 40.3 L MCV 96.8 MCH 32.7 MCHC 33.8 RDW 12.3 Plt Count 175 Neut % (Auto) 61.5 Lymph % (Auto) 28.0 [place] % (Auto) 9.1 Eos % (Auto) 0.8 L Baso % (Auto) 0.6 Neut # (Auto) 4100 Sodium 140 Potassium 3.9 Chloride 101 Carbon Dioxide 32 BUN 15 Creatinine 0.90 Estimated GFR > 60.0 BUN/Creatinine Ratio 16.7 Glucose 94 Calcium 9.3 Total Bilirubin 0.4 AST 16 L ALT 19 L Alkaline Phosphatase 41 Total Protein 6.4 Albumin 3.9 Globulin 2.5 Albumin/Globulin Ratio 1.6 Discharge Plan Discharge Plan Patient Disposition: Home Discharge comment: DC home Discharge Med Rec/Prescriptions Prescriptions: New oxycodone 5 mg Tablet 10 mg PO Q3HR PRN (Reason: Pain, Severe (7-10)) Qty: 40 RF: 0 hydroxyzine pamoate 25 mg Capsule 25 mg PO Q4HR PRN (Reason: Nausea And Vomiting) Qty: 30 RF: 0 Follow up/Referrals: Saad Gibbons MD [Primary Care Provider] - Provider Discharge Instructions Diet: Diet as Tolerated Activity: Limit bending, twisting, lifting Cold/Heat Therapy: ice as needed Other treatments: Soft collar for comfort Skin/Wound/Dressing Care Report to your healthcare provider any signs of infection, such as:: chills, fever, increased pain and unusual drainage Dressing: Keep dressing clean and dry Visit Report/Discharge Packet Instructions: DI for Syncope in Adults (Fainting), DI for Constipation, DI for Anterior Cervical Discectomy and Fusion Visit Report Forms: Stroke Signs & Symptoms Discharge Data Primary Care Provider: Saad Gibbons Attending Provider: Ryan Palm Admit Date/Time: 03/09/18 05:38 Quality VTE Deep Vein Thrombosis/Pulmonary Embolism Present on Admission: No
--- NOTE | 2018-03-12 16:28 | P.DS_ITS ---
History of Present Illness Date Patient Seen: 03/12/18 Time Patient Seen: 16:23 Chief complaint: [id number] Narrative: Patient's pain currently well-controlled. Taking oxycodone 10 mg q.3 -4 hours as needed for pain. Patient did have a vasovagal episode this morning with heart rate in 30s, and blood pressure 63/30. Patient has no significant cardiac history. Patient has been up since the vasovagal event earlier this morning. Denies feeling short of breath or having chest pain. No difficulty swallowing. He denies being dizzy or lightheaded. Discharge Providers Date of admission: 03/09/18 05:38 Primary care physician: Saad Gibbons MD Consults: 03/09/18 11:54 Consult to Occupational Therapy Evaluate & Treat Comment: Physician Instructions: Evaluate and treat Consult to Physical Therapy Evaluate & Treat Comment: Physician Instructions: Evaluate and Treat Discharge provider: Juan Francisco Bailey PA-C Discharge Date: 03/12/18 Summary Discharge Diagnosis: Status post 1. C5-6, C6-7, C7-T1 anterior cervical discectomy and fusion 2. C5-6, C6-7, C7-T1 interbody cage placement 3. C5-6, C6-7, C7-T1 anterior instrumentation with plate and screw placement in C5, C6, C7, T1 4. Utilization of microsurgical technique and operating microscope Hospital Course: Patient has been having chronic neck pain and worsening cervical radiculopathy. Patient failed multiple conservative management with worsening pain weakness and numbness in her upper extremity. Patient has been having difficulty performing activity of daily living. After discussing risks benefits of treatment options, patient elected proceed with surgery. Surgeon: Ryan Palm Engine Research Engineer: Clarisse Jiménez Click Yes if Unassisted: No Anesthesia Type: General Estimated blood loss 50 mL Basal vagal event earlier this morning. EKG normal. H&H stable. Patient discharged home in stable condition. Status at Discharge Functional status at discharge: uses cane/walker Overall status at discharge: patient is progressing back to baseline Time Spent with Patient Less than 30 minutes Exam Vital Signs (past 8 hours): - 03/12/18 15:50 Temperature 98.0 F Pulse Rate 66 Respiratory Rate 18 Blood Pressure 114/71 Pulse Oximetry 98 Oxygen Delivery Method Room Air Oxygen Flow Rate 0 Narrative Exam Narrative: 62-year-old male sitting at the edge of bed in no acute distress. Soft collar in place. Dressing clean, dry and intact. Drain discontinued. Objective Labs Result Diagrams: 03/12/18 11:02 03/12/18 11:02 Labs: Laboratory Results - last 24 hr 03/12/18 03/12/18 11:02 11:02 WBC 6.7 RBC 4.16 L Hgb 13.6 Hct 40.3 L MCV 96.8 MCH 32.7 MCHC 33.8 RDW 12.3 Plt Count 175 Neut % (Auto) 61.5 Lymph % (Auto) 28.0 [place] % (Auto) 9.1 Eos % (Auto) 0.8 L Baso % (Auto) 0.6 Neut # (Auto) 4100 Sodium 140 Potassium 3.9 Chloride 101 Carbon Dioxide 32 BUN 15 Creatinine 0.90 Estimated GFR > 60.0 BUN/Creatinine Ratio 16.7 Glucose 94 Calcium 9.3 Total Bilirubin 0.4 AST 16 L ALT 19 L Alkaline Phosphatase 41 Total Protein 6.4 Albumin 3.9 Globulin 2.5 Albumin/Globulin Ratio 1.6 Discharge Plan Discharge Plan Patient Disposition: Home Discharge comment: DC home Discharge Med Rec/Prescriptions Prescriptions: New oxycodone 5 mg Tablet 10 mg PO Q3HR PRN (Reason: Pain, Severe (7-10)) Qty: 40 RF: 0 hydroxyzine pamoate 25 mg Capsule 25 mg PO Q4HR PRN (Reason: Nausea And Vomiting) Qty: 30 RF: 0 Follow up/Referrals: Saad Gibbons MD [Primary Care Provider] - Provider Discharge Instructions Diet: Diet as Tolerated Activity: Limit bending, twisting, lifting Cold/Heat Therapy: ice as needed Other treatments: Soft collar for comfort Skin/Wound/Dressing Care Report to your healthcare provider any signs of infection, such as:: chills, fever, increased pain and unusual drainage Dressing: Keep dressing clean and dry Visit Report/Discharge Packet Instructions: DI for Syncope in Adults (Fainting), DI for Constipation, DI for Anterior Cervical Discectomy and Fusion Visit Report Forms: Stroke Signs & Symptoms Discharge Data Primary Care Provider: Saad Gibbons Attending Provider: Ryan Palm Admit Date/Time: 03/09/18 05:38 Quality VTE Deep Vein Thrombosis/Pulmonary Embolism Present on Admission: No
== END 2018-03-12 17:45 | disposition home or self-care (01) | DRG 473 ==
PROVIDERS: Physician Assistant Surgical; Admitting Provider Orthopaedic Surgery Orthopaedic Surgery of the Spine; PCP Family Medicine; Visit Provider Orthopaedic Surgery Orthopaedic Surgery of the Spine
PROC: 0RG20A0 Fusion of 2 or more Cervical Vertebral Joints with Interbody Fusion Device, Anterior Approach, Anterior Column, Open Approach (ICD-10-PCS; principal; 2018-03-09 07:45)
DX: M48.02 Spinal stenosis, cervical region (principal); M47.22 Other spondylosis with radiculopathy, cervical region; I95.89 Other hypotension; Z72.0 Tobacco use
CPT/HCPCS: 36415; 71045; 72040; 76001; 80053; 85025; 85027; 93005; 97116; 97162; 97165; 99406; C1776; J0690; J1100; J1170; J2250; J2405; J2704; J3010